=== PATIENT | male | born 1965 | race Caucasian/White ===

== ENCOUNTER 2018-06-28 11:17 | Outpatient (CLI) | payer OTHER | END 2018-06-28 17:15 | disposition home or self-care (01) | LOC: LAB 11:17 | DX: J11.1 Influenza due to unidentified influenza virus with other respiratory manifestations (principal) ==

== ENCOUNTER 2018-07-12 14:39 | Outpatient (CLI) | payer OTHER | END 2018-07-12 15:39 | disposition home or self-care (01) | LOC: LAB 14:39 | DX: J11.1 Influenza due to unidentified influenza virus with other respiratory manifestations (principal); J06.9 Acute upper respiratory infection, unspecified ==

== ENCOUNTER → 2019-01-30 07:15 | Outpatient (CLI) | payer OTHER | END | disposition home or self-care (01) | LOC: LAB 07:15 | DX: R31.29 Other microscopic hematuria (principal); N30.00 Acute cystitis without hematuria ==

== ENCOUNTER 2019-02-14 05:55 | Day surgery (SDC) | payer OTHER ==
[2019-02-14] MEDS ORDERED: ZOFRAN4 MG PO (09:54)
[2019-02-14] MEDS ORDERED: MIRALAX17 GM PO (09:54)
[2019-02-14] MEDS ORDERED: TRAMADOL HCL50 MG PO (09:54)
[2019-02-14] MEDS ORDERED: TYLENOL EXTRA500 MG PO (09:54)
== END 2019-02-14 12:50 | disposition home or self-care (01) ==
LOC: CIR.AMB 05:55
DX: K42.0 Umbilical hernia with obstruction, without gangrene (principal)

== ENCOUNTER 2020-02-17 10:50 | Outpatient (CLI) | payer OTHER ==
[~2020-02-17 10:50] MED LIST: MIRALAX17 GM PO; TRAMADOL HCL50 MG PO; TYLENOL EXTRA500 MG PO; ZOFRAN4 MG PO
== END 2020-02-17 15:23 | disposition home or self-care (01) ==
LOC: LAB 10:50
PROVIDERS: ATTEND Physical Medicine & Rehabilitation
DX: Z20.828 Contact with and (suspected) exposure to other viral communicable diseases (principal); Z11.59 Encounter for screening for other viral diseases

== ENCOUNTER 2020-02-28 10:27 | Outpatient (CLI) | payer OTHER | END 2020-02-28 10:32 | disposition home or self-care (01) | LOC: RAD 10:27 | PROVIDERS: ATTEND Orthopaedic Surgery Orthopaedic Surgery of the Spine | DX: M54.5 Low back pain (principal) ==

== ENCOUNTER 2021-03-12 08:02 | Outpatient (CLI) | payer OTHER ==
[~2021-03-12 08:02] MED LIST changes: +CYCLOBENZAPRINE10 MG PO; +DICLOFENAC POTA50 MG PO; +LORAZEPAM0.5 MG PO; +NABUMETONE750 MG PO; +ORPHENADRI30 MG/1 M1 IM; +TIZANIDINE HCL4 MG PO; +TORADOL60 MG IM
== END 2021-03-12 09:00 | disposition home or self-care (01) ==
LOC: MRI 08:02
PROVIDERS: ATTEND Physical Medicine & Rehabilitation
DX: M54.59 Other low back pain (principal)
CPT/HCPCS: 72158

== ENCOUNTER 2021-03-19 09:15 | Outpatient (CLI) | payer OTHER ==
[2021-03-24] MEDS ORDERED: NABUMETONE750 MG PO (10:20)
[2021-03-24] MEDS ORDERED: CYCLOBENZAPRINE10 MG PO (10:20)
[2021-04-28] MEDS ORDERED: TIZANIDINE HCL4 MG PO (11:54)
[2021-04-28] MEDS ORDERED: CELEBREX200MG PO (11:54)
== END 2021-03-19 09:30 | disposition home or self-care (01) ==
LOC: PPH VACUNA 09:15
PROVIDERS: ATTEND Emergency Medicine Pediatric Emergency Medicine
DX: Z23 Encounter for immunization (principal)